=== PATIENT | male | born 1960 | race Caucasian/White ===

== ENCOUNTER 2016-07-08 11:06 | Emergency (ER) | payer OTHER ==
[2016-07-08] MEDS ORDERED: SODIUM CHLORIDE 0.9% 1,000 ML IV STA (11:13)
[2016-07-08] MEDS ORDERED: DIPH,PERTUS(ACELL)TETVAC-LF 0.5 ML VIAL IM ONE (11:13)
[2016-07-08] MEDS ORDERED: RX INFO: IV CONTRAST WAS GIVEN 1 EACH MISC MISCELLANE PRN (11:13)
--- NOTE | 2016-07-08 11:20 | ED ---
General Adult HPI - General Stated complaint: [facility] Fall Time Seen by Provider: 07/08/16 11:13 Source: patient, EMS, RN notes reviewed Mode of arrival: EMS Limitations: no limitations - History of Present Illness Initial comments: Patient is a pleasant 55-year-old male presenting to the emergency department following a fall. Patient was working on a ladder at work when he fell around 8 feet and landed on his right hip. Patient complains of discomfort of the right hip. Patient had limited ability to ambulate. No reported head injury. Fall was witnessed. Patient denies headache. EMS reports patient has had some episodes of repetitive questioning. Patient denies neck or back pain. No headache. No chest pain or dyspnea. No abdominal pain. Patient denies any upper extremity problems. Patient states he does not normally go to the doctor. Patient does sometimes drink alcohol however has not yet today. - Related Data Home Medications Medication Instructions Recorded Confirmed Calcium Carbonate [Calcium] 600 mg PO HS 07/08/16 07/08/16 Multivitamins, Thera [Multivitamin 1 tab PO HS 07/08/16 07/08/16 (formulary)] Vicodin (Unknown Dose) 1 tab PO DAILY PRN 07/08/16 07/08/16 Allergies Allergy/AdvReac Type Severity Reaction Status Date / Time No Known Allergies Allergy Verified 07/08/16 12:24 Review of Systems ROS Statement: Those systems with pertinent positive or pertinent negative responses have been documented in the HPI. ROS Other: All systems not noted in ROS Statement are negative. Constitutional: Denies: fever Eyes: Denies: eye pain ENT: Denies: ear pain Respiratory: Denies: cough, dyspnea Cardiovascular: Denies: chest pain Endocrine: Denies: fatigue Gastrointestinal: Denies: abdominal pain Genitourinary: Denies: dysuria Musculoskeletal: Denies: back pain Skin: Denies: rash Neurological: Denies: headache Past Medical History Past Medical History: No Reported History Past Surgical History: Orthopedic Surgery Smoking Status: Current every day smoker Past Alcohol Use History: Daily Past Drug Use History: Marijuana General Exam Limitations: no limitations General appearance: alert, in no apparent distress Head exam: Present: atraumatic, normocephalic Eye exam: Present: normal appearance, PERRL, EOMI. Absent: nystagmus ENT exam: Present: normal oropharynx Neck exam: Present: normal inspection. Absent: tenderness Respiratory exam: Present: normal lung sounds bilaterally. Absent: chest wall tenderness Cardiovascular Exam: Present: regular rate, normal rhythm GI/Abdominal exam: Present: soft. Absent: distended, tenderness, guarding, rebound, rigid Extremities exam: Present: normal inspection, other (Right hip with limited range of motion secondary to pain). Absent: tenderness Back exam: Present: tenderness (Moderate to severe tenderness lumbar spine) Neurological exam: Present: alert, oriented X3, CN II-XII intact. Absent: motor sensory deficit Expanded Motor strength exam: RUE: 5, LUE: 5, RLE: 5, LLE: 5 Eye Response: (4) open spontaneously Motor Response: (6) obeys commands Verbal Response: (5) oriented Psychiatric exam: Present: normal affect, normal mood Skin exam: Present: normal color, abrasion (Right leg and right chest abrasion) Course - Reevaluation(s) Reevaluation #1: 07/08/16 11:16 Patient upgraded to priority 2 trauma based on physician discretion at 11:14 AM. 07/08/16 11:27 Case was discussed with Dr. Lackey 07/08/16 12:49 Patient reevaluated and updated. Case was discussed with Dr. Monet at [facility] who will call back regarding transfer. 07/08/16 12:54 Case again discussed with Dr. Monet who will accept transfer. EKG Findings - EKG Comments: EKG Findings:: Normal sinus rhythm at 83. Normal intervals. Normal axis. LVH criteria. No acute ST change. Medical Decision Making - Lab Data Result diagrams: 07/08/16 11:13 07/08/16 11:13 Lab Results 07/08/16 07/08/16 07/08/16 Range/Units 11:13 11:13 11:13 WBC 18.6 H (3.8-10.6) k/uL RBC 4.36 (4.30-5.90) m/uL Hgb 13.9 (13.0-17.5) gm/dL Hct 42.1 (39.0-53.0) % MCV 96.6 (80.0-100.0) fL MCH 32.0 (25.0-35.0) pg MCHC 33.1 (31.0-37.0) g/dL RDW 12.6 (11.5-15.5) % Plt Count 324 (150-450) k/uL Neutrophils % 80 % Lymphocytes % 13 % Monocytes % 4 % Eosinophils % 1 % Basophils % 1 % Neutrophils # 14.9 H (1.3-7.7) k/uL Lymphocytes # 2.3 (1.0-4.8) k/uL Monocytes # 0.8 (0-1.0) k/uL Eosinophils # 0.2 (0-0.7) k/uL Basophils # 0.2 (0-0.2) k/uL PT (9.0-12.0) sec INR (<1.1) APTT (22.0-30.0) sec Sodium 138 (137-145) mmol/L Potassium 4.7 (3.5-5.1) mmol/L Chloride 107 (98-107) mmol/L Carbon Dioxide 22 (22-30) mmol/L Anion Gap 9 mmol/L BUN 13 (9-20) mg/dL Creatinine 0.90 (0.66-1.25) mg/dL Est GFR (MDRD) Af Amer >60 (>60 ml/min/1.73 sqM) Est GFR (MDRD) Non-Af >60 (>60 ml/min/1.73 sqM) Glucose 129 H (74-99) mg/dL POC Glucose (mg/dL) (75-99) mg/dL POC Glu [employer] ID Calcium 9.5 (8.4-10.2) mg/dL Total Bilirubin 0.9 (0.2-1.3) mg/dL AST 30 (17-59) U/L ALT 40 (21-72) U/L Alkaline Phosphatase 60 (38-126) U/L Total Creatine Kinase 361 H (55-170) U/L CK-MB (CK-2) 3.4 H* (0.0-2.4) ng/mL CK-MB (CK-2) Rel Index 0.9 Troponin I <0.012 (0.000-0.034) ng/mL Total Protein 6.8 (6.3-8.2) g/dL Albumin 4.3 (3.5-5.0) g/dL Amylase 49 (30-110) U/L Lipase 85 (23-300) U/L Serum Alcohol <10 mg/dL 07/08/16 07/08/16 Range/Units 11:13 11:15 WBC (3.8-10.6) k/uL RBC (4.30-5.90) m/uL Hgb (13.0-17.5) gm/dL Hct (39.0-53.0) % MCV (80.0-100.0) fL MCH (25.0-35.0) pg MCHC (31.0-37.0) g/dL RDW (11.5-15.5) % Plt Count (150-450) k/uL Neutrophils % % Lymphocytes % % Monocytes % % Eosinophils % % Basophils % % Neutrophils # (1.3-7.7) k/uL Lymphocytes # (1.0-4.8) k/uL Monocytes # (0-1.0) k/uL Eosinophils # (0-0.7) k/uL Basophils # (0-0.2) k/uL PT 10.9 (9.0-12.0) sec INR 1.1 (<1.1) APTT 22.1 (22.0-30.0) sec Sodium (137-145) mmol/L Potassium (3.5-5.1) mmol/L Chloride (98-107) mmol/L Carbon Dioxide (22-30) mmol/L Anion Gap mmol/L BUN (9-20) mg/dL Creatinine (0.66-1.25) mg/dL Est GFR (MDRD) Af Amer (>60 ml/min/1.73 sqM) Est GFR (MDRD) Non-Af (>60 ml/min/1.73 sqM) Glucose (74-99) mg/dL POC Glucose (mg/dL) 127 H (75-99) mg/dL POC Glu [employer] Coordinator ID Augustin Costello Calcium (8.4-10.2) mg/dL Total Bilirubin (0.2-1.3) mg/dL AST (17-59) U/L ALT (21-72) U/L Alkaline Phosphatase (38-126) U/L Total Creatine Kinase (55-170) U/L CK-MB (CK-2) (0.0-2.4) ng/mL CK-MB (CK-2) Rel Index Troponin I (0.000-0.034) ng/mL Total Protein (6.3-8.2) g/dL Albumin (3.5-5.0) g/dL Amylase (30-110) U/L Lipase (23-300) U/L Serum Alcohol mg/dL - Radiology Data Radiology results: report reviewed (Computed tomography scan of the brain shows area of decreased attenuation right frontal lobe which appears nonacute. Computed tomography scan of the cervical spine shows no acute fracture. Computed tomography scan of the chest shows no acute process. Computed tomography scan of the abdomen and pelvis and lumbar spine shows L2 through L5 right transverse process and spinous process fractures with associated hematoma near the right iliopsoas, 5.9 x 3.7 cm.) Critical Care Time Critical Care Time: Yes Total Critical Care Time: 32 Disposition Clinical Impression: Fall, Iliopsoas muscle hematoma, Lumbar transverse process fracture, Fracture of spinous process of lumbar vertebra, Concussion Disposition: OTHER INSTITUTION NOT DEFINED Time of Disposition: 12:56 - Out of Hospital Transfer - Req. Specs Out of Hospital Transfer - Requested Specifics: Other Emergency Center
[2016-07-08 11:25] LABS: Glucose,Whole Blood 127 mg/dL (75-99)
[2016-07-08] MEDS: HYDROmorphone 1 MG/ML 1 ML SYRINGE IVP STA ×2 (11:28→13:26)
[2016-07-08 11:29] LABS: Basophils # (A) 0.2 k/uL (0-0.2); Basophils % (A) 1 %; CH 32.8; CHCM 34.1; Eosinophils # (A) 0.2 k/uL (0-0.7); Eosinophils % (A) 1 %; HCT 42.1 % (39.0-53.0); HDW 2.31; HGB 13.9 gm/dL (13.0-17.5); Luc # (Auto) 0.22; Luc % (Auto) 1; Lymphocytes # (A) 2.3 k/uL (1.0-4.8); Lymphocytes % (A) 13 %; MCHC 33.1 g/dL (31.0-37.0); MCV 96.6 fL (80.0-100.0); Mean Platelet Volume 6.4; Monocytes # (A) 0.8 k/uL (0-1.0); Monocytes % (A) 4 %; Neutrophils # (A) 14.9 k/uL (1.3-7.7); Neutrophils % (A) 80 %; RBC 4.36 m/uL (4.30-5.90); RDW 12.6 % (11.5-15.5); WBC 18.6 k/uL (3.8-10.6); WBC (Perox) 18.61
[2016-07-08 11:40] LABS: ALT 40 U/L (21-72); AST 30 U/L (17-59); Alcohol <10 mg/dL; Alkaline Phosphatase 60 U/L (38-126); Amylase 49 U/L (30-110); Anion Gap 9 mmol/L; Blood Urea Nitrogen 13 mg/dL (9-20); Calcium 9.5 mg/dL (8.4-10.2); Carbon Dioxide 22 mmol/L (22-30); Chloride 107 mmol/L (98-107); Glucose 129 mg/dL (74-99); Non-African American GFR(MDRD) >60 (>60 ml/min/1.73 sqM); Potassium 4.7 mmol/L (3.5-5.1); Sodium 138 mmol/L (137-145); Total Bilirubin 0.9 mg/dL (0.2-1.3); Total Protein 6.8 g/dL (6.3-8.2)
[2016-07-08 11:41] LABS: INR 1.1 (<1.1); Partial Thromboplastin Time 22.1 sec (22.0-30.0); Prothrombin Time 10.9 sec (9.0-12.0)
--- NOTE | 2016-07-08 11:41 | XR ---
EXAMINATION TYPE: XR pelvis AP view DATE OF EXAM: 07/08/2016 11:33 AM COMPARISON: NONE HISTORY: 55-year-old male with trauma after fall and landing on back side/right hip FINDINGS: SI joints appear symmetric and intact as does the pubic symphysis. Mild degenerative change at both h ips with marginal spurring and superolateral joint space narrowing. No acute fracture or dislocation seen. 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 IMPRESSION: Mild bilateral hip osteoarthrosis. No acute osseous abnormality seen.
--- NOTE | 2016-07-08 11:43 | XR ---
EXAMINATION TYPE: XR chest 1V portable DATE OF EXAM: 07/08/2016 11:33 AM Comparison: None Clinical History: 55-year-old male with trauma and pain Findings: There is leftward patient rotation altering the normal cardiomediastinal contours. Heart appears uppe r limits of normal in size. Mild interstitial prominence is a chronic appearance. Bilateral old heale d rib fracture deformities. No morris consolidation, pneumothorax, or pleural effusion seen. Impression: Limited rotated exam. The heart is upper limits of normal in size. Parenchymal changes appear largely chronic. Old bilateral rib fracture deformities. No definite acute process.
[2016-07-08 11:58] LABS: Creatine Kinase 361 U/L (55-170)
--- NOTE | 2016-07-08 12:05 | CT ---
EXAMINATION TYPE: CT brain lizzy wo con DATE OF EXAM: 07/08/2016 11:56 AM COMPARISON: NONE HISTORY: fall from ladder CT DLP: 1602.9 mGycm Automated exposure control for dose reduction was used. TECHNIQUE: CT scan of the head and cervical spine are performed without contrast. FINDINGS: There is no acute intracranial hemorrhage, mass effect, or midline shift identified. The ventricles and sulci are within normal limits in size. There is decreased attenuation within the rig ht frontal lobe which appears nonacute. A degree of encephalomalacia suggested. Correlate clinically. The globes are intact and the visualized sinuses are clear. Cervical spine is visualized in its entirety from C1 through upper thoracic levels and demonstrates s atisfactory alignment without evidence of acute fracture or dislocation. Prevertebral soft tissue ap pears within normal limits. The C1-C2 articulation is unremarkable. Moderate degenerative changes a t C4-5 C5-6 and C6-7 with ventral and dorsal spondylosis. Borderline central stenosis suggested at C4 -5 with mild central stenosis at C5-6. IMPRESSION: 1. There is no acute fracture or dislocation evident in the cervical spine. 2. No acute intracranial hemorrhage, mass effect, or midline shift is seen.There is decreased attenua tion within the right frontal lobe which appears nonacute. Correlate clinically.
[2016-07-08 12:11] LABS: Troponin I <0.012 ng/mL (0.000-0.034)
[2016-07-08 12:12] LABS: Creatine Kinase MB 3.4 ng/mL (0.0-2.4)
--- NOTE | 2016-07-08 12:22 | CT ---
EXAMINATION TYPE: CT ChestAbdPelvis w con DATE OF EXAM: 07/08/2016 11:59 AM COMPARISON: NONE HISTORY: Fall from ladder CT DLP: 1282.2 mGycm CONTRAST: Contrast enhanced Trauma CT of the Chest, Abdomen and Pelvis is performed with IV Contrast, patient i njected with 100 mL of Omnipaque 300. Chest: LUNGS: There is no evidence for pneumothorax. The lungs are clear and free of focal contusion or ate lectasis. No pleural effusion MEDIASTINUM: Thoracic aorta is of normal caliber without CT evidence to suggest traumatic induced ao rtic injury. No mediastinal fluid or blood. No pericardial fluid or cardia abnormality. HILAR STRUCTURES: No evidence for mass. No hilar adenopathy is appreciated. OTHER: Small moderate fixed hiatal hernia. OSSEOUS: No acute displaced osseous fractures identified. Healed remote right-sided rib fractures. D egenerative changes of the thoracic spine without evidence for fracture. CT ABDOMEN AND PELVIS FINDINGS: LIVER/GB: No focal laceration, contusion or subcapsular hemorrhage. No calcified gallstones. No s pace occupying hepatic lesion. Biliary tree is of normal caliber. PANCREAS: No evidence for transection. No inflammation. No distinct mass. SPLEEN: No focal laceration, contusion or subcapsular hemorrhage. ADRENALS: No hemorrhage. No nodule. No thickening. KIDNEYS/BLADDER: No focal laceration, contusion or subcapsular hemorrhage. No hydronephrosis. Large calculus mid pole right kidney measuring 1.6 cm with renal parenchymal thinning. 1.2 cm cystic lesio n right kidney lower pole. BOWEL: Bowel is intact. No evidence for pneumoperitoneum. GENITAL ORGANS: No gross abnormality. LYMPH NODES: No greater than 1cm abdominal or pelvic lymph nodes areappreciated. AORTA: No traumatic aortic injury visualized. OSSEOUS STRUCTURES: Fractures of right sided transverse processes are noted of L2-L5. L2-L5 also demo nstrate spinous process fractures. No evidence for fracture involving the posterior elements or verte bral bodies. There is hematoma noted posterior to the right iliopsoas musculature measuring approxima tely 5.9 x 3.7 cm. Small amount of hematoma extends into the right iliacus musculature. There is also right lateral flank subcutaneous hematoma. OTHER: No evidence for hemoperitoneum. IMPRESSION: 1. No evidence for traumatic injury to the chest. 2. Fractures of L2-L5 right-sided transverse processes and spinous processes with associated hematoma as discussed. No additional fracture seen at this time. 3. No evidence for solid or hollow abdominal visceral injury. Thoracic aorta is intact.
--- NOTE | 2016-07-08 12:26 | CT ---
EXAMINATION TYPE: CT lumbar spine w con DATE OF EXAM: 07/08/2016 12:11 PM COMPARISON: NONE HISTORY: Trauma, pain CONTRAST: CT of the lumbar spine with bone and soft tissue window settings submitted. Unenhanced CT of the lumbar spine was performed. Bone and soft tissue window settings are submitted as well as coronal and sagittal reconstructions. L1-L2: Normal disc space height. No disc herniation protrusion or central stenosis. No facet joint arthropathy. No evidence for foraminal encroachment. L2-L3: Moderate disc desiccation. Circumferential disc bulge. Facet joint arthropathy. Hypertrophy of the ligamentum flavum resulting in moderate central stenosis. L3-L4: Moderate disc desiccation. Circumferential disc bulge. Facet joint arthropathy. Hypertrophy of the ligamentum flavum resulting in moderate central stenosis. L4-L5: Moderate disc desiccation. Circumferential disc bulge. Facet joint arthropathy. Hypertrophy of the ligamentum flavum resulting in moderate central stenosis. L5-S1: Vacuum discs compatible with severe degenerative disc disease. Circumferential disc bulge grea test posteriorly. Bilateral lateral recess stenosis suspected. No central stenosis seen. Bilateral fo raminal encroachment. No central stenosis at this level. Fractures of right sided transverse processes are noted of L2-L5. L2-L5 also demonstrate spinous proc ess fractures. No evidence for fracture involving the posterior elements or vertebral bodies. There i s hematoma noted posterior to the right iliopsoas musculature measuring approximately 5.9 x 3.[address] amount of hematoma extends into the right iliacus musculature. There is also right lateral flank subcutaneous hematoma. There may be nondisplaced fracture of right L1 transverse process as well. IMPRESSION: 1. Fractures as discussed as well as an associated hematoma. 2. Multilevel degenerative disc disease and moderate central stenosis L2-3 through L4-5.
[2016-07-08 14:15] VITALS: PULSE 180; RESP 18; TEMP 99
== END 2016-07-08 14:12 | disposition short-term general hospital (02) ==
LOC: EC 11:06
DX: S32.029A Unspecified fracture of second lumbar vertebra, initial encounter for closed fracture (principal); S32.039A Unspecified fracture of third lumbar vertebra, initial encounter for closed fracture; S32.049A Unspecified fracture of fourth lumbar vertebra, initial encounter for closed fracture; S32.059A Unspecified fracture of fifth lumbar vertebra, initial encounter for closed fracture; S30.1XXA Contusion of abdominal wall, initial encounter; S06.0X0A Concussion without loss of consciousness, initial encounter; F17.200 Nicotine dependence, unspecified, uncomplicated; Z23 Encounter for immunization; Z79.899 Other long term (current) drug therapy; W11.XXXA Fall on and from ladder, initial encounter; Y93.89 Activity, other specified; Y99.0 Civilian activity done for income or pay; Y92.69 Other specified industrial and construction area as the place of occurrence of the external cause
CPT/HCPCS: 99291; 90471; 96374; 96376; 96361 ×3; 36415; 93005; 86900; 86901; 80053; 82150; 82550; 82553; 83690; 84484; 85025; 85610; 85730; 86850; 80320; 71010; 72170; 72125; 72132; 70450; 71260; 74177; 90715; J1170; Q9967

== ENCOUNTER 2018-07-23 10:44 | Emergency (ER) | payer OTHER ==
[2018-07-23 10:48] VITALS: RESP 18; TEMP 98.7
[2018-07-23] MEDS ORDERED: LIDOCAINE 1% INJ 10MG/ML (20 ML MDV) SQ ONE (11:03)
[2018-07-23] MEDS ORDERED: DIPH,PERTUS(ACELL)TETVAC-LF 0.5 ML VIAL IM ONE (11:03)
--- NOTE | 2018-07-23 11:12 | ED ---
Wound/Laceration HPI - General Chief Complaint: Wound/Laceration Stated Complaint: Forehead injury/laceration Time Seen by Provider: 07/23/18 10:52 Source: patient, RN notes reviewed, old records reviewed Mode of arrival: ambulatory Limitations: no limitations - History of Present Illness Initial Comments: Patient is a 57-year-old male presents emergency department today for evaluation with complaints of laceration between his eyes. Patient reports that he was walking in his garage, no pain tension in, he turned and hit his forehead on a 2 x 4. Patient states that he noticed the bleeding initially thought it was an abrasion. After evaluation he states that it's a wide laceration between the eyes above the bridge of the nose. Patient states his tetanus is not up-to-date. Patient denies any other complaints. No loss consciousness, neck pain. Denies any pain with extra ocular eye movements or visual disturbances. - Related Data Home Medications Medication Instructions Recorded Confirmed Calcium Carbonate [Calcium] 600 mg PO HS 07/08/16 07/08/16 Multivitamins, Thera [Multivitamin 1 tab PO HS 07/08/16 07/08/16 (formulary)] Vicodin (Unknown Dose) 1 tab PO DAILY PRN 07/08/16 07/08/16 Allergies Allergy/AdvReac Type Severity Reaction Status Date / Time No Known Allergies Allergy Verified 07/23/18 10:48 Review of Systems ROS Statement: Those systems with pertinent positive or pertinent negative responses have been documented in the HPI. ROS Other: All systems not noted in ROS Statement are negative. Past Medical History Past Medical History: No Reported History History of Any Multi-Drug Resistant Organisms: None Reported Past Surgical History: Orthopedic Surgery Past Psychological History: No Psychological Hx Reported Smoking Status: Current every day smoker Past Alcohol Use History: Occasional Past Drug Use History: Marijuana General Exam - General Exam Comments Initial Comments: 57-year-old male. Alert and oriented 3. No distress. Limitations: no limitations Head exam: Present: atraumatic, normocephalic, normal inspection Eye exam: Present: normal appearance, PERRL, EOMI. Absent: scleral icterus, conjunctival injection, periorbital swelling ENT exam: Present: normal exam, mucous membranes moist, other ( is a 3 cm laceration between the eyebrows above the bridge of the nose. Wide gaping laceration.) Neck exam: Present: normal inspection. Absent: tenderness, meningismus, lymphadenopathy Respiratory exam: Present: normal lung sounds bilaterally. Absent: respiratory distress, wheezes, rales, rhonchi, stridor Cardiovascular Exam: Present: regular rate, normal rhythm, normal heart sounds. Absent: systolic murmur, diastolic murmur, rubs, gallop, clicks GI/Abdominal exam: Present: soft, normal bowel sounds. Absent: distended, tenderness, guarding, rebound, rigid Extremities exam: Present: normal inspection, full ROM, normal capillary refill. Absent: tenderness, pedal edema, joint swelling, calf tenderness Back exam: Present: normal inspection Neurological exam: Present: alert, oriented X3, CN II-XII intact Psychiatric exam: Present: normal affect, normal mood Skin exam: Present: warm, dry, intact, normal color. Absent: rash Course Vital Signs 07/23/18 10:46 Temperature 98.7 F Pulse Rate 80 Respiratory 18 Rate Blood Pressure 178/109 O2 Sat by Pulse 99 Oximetry Procedures - Laceration Laceration #1 Size (cm): 3 Description: linear Anesthesia Technique: local infiltration Amount (mls): 3 Type of Sutures: nylon Size of Sutures: 5-0 Number of Sutures: 5 Technique: simple, interrupted Patient Tolerated Procedure: well, no complications Medical Decision Making - Medical Decision Making Patient is a 57-year-old male presents emergency department today for evaluation for laceration over the bridge of his nose after hitting on September 02. Was given updated tetanus. Wound was thoroughly irrigated and closed with 5 sutures. Discussed suture care and monitoring of infection. All questions answered return parameters were discussed. Disposition Clinical Impression: Facial laceration Disposition: HOME SELF-CARE Condition: Good Instructions (If sedation given, give patient instructions): Laceration (ED) Additional Instructions: Please return to the emergency room in 7 days to have sutures removed. Please leave wound covered for the first 24-48 hours and then leave open to air after that time. Please use clean soap and water to clean the suture area to prevent scabbing over the top of your sutures. Please watch for any signs of infection which may include but not limited to increased pain, swelling, redness, fever or chills. Please return to the emergency room if any signs of infection do occur. Please return to the emergency room for any other concerns or complications. Is patient prescribed a controlled substance at d/c from ED?: No Referrals: None,Stated [Primary Care Provider] - 1-2 days Time of Disposition: 12:25
[2018-07-23 12:39] VITALS: BP 158/103; PULSE 76
== END 2018-07-23 12:39 | disposition home or self-care (01) ==
LOC: EC 10:44
DX: S01.81XA Laceration without foreign body of other part of head, initial encounter (principal); F17.200 Nicotine dependence, unspecified, uncomplicated; Z79.899 Other long term (current) drug therapy; Z23 Encounter for immunization; W22.8XXA Striking against or struck by other objects, initial encounter; Y93.01 Activity, walking, marching and hiking; Y92.59 Other trade areas as the place of occurrence of the external cause
CPT/HCPCS: 90715; 99283; 12013; 90471; J2001